=== PATIENT | female | born 2000 | race Caucasian/White ===

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

== ENCOUNTER 2022-03-06 12:28 | Emergency (ER) | payer SELFPAY ==
[2022-03-06 14:08] LABS: Urine Blood Negative (Negative); Urine Glucose Negative (Negative); Urine Protein 1+ (Negative); Urine Specific Gravity >=1.030 (1.005-1.030)
[2022-03-06 14:17] LABS: Absolute Lymphocytes (CBC) 0.5 K/uL (0.7-4.9); Hematocrit 47.1 % (36.0-45.0); Lymphocytes % 6.7 % (15.3-44.8); MCV 84.4 fL (80-100); MPV 8.3 fL (7.6-11.3); RBC Red Blood Cell Count 5.59 M/uL (3.86-4.86)
[2022-03-06 14:19] LABS: Urine Bacteria None Seen /HPF (<20); Urine Mucus 3+ /HPF (None Seen); Urine RBC <5 /HPF (None Seen)
[2022-03-06 14:23] LABS: Urine Specific Gravity/Preg >1.030 (1.005-1.030)
[2022-03-06] MEDS ORDERED: NA CHLORIDE 0.9% 1,000 ML ONE (14:29)
[2022-03-06] MEDS ORDERED: ONDANSETRON 4 MG/2 ML VIAL ONE (14:29)
[2022-03-06] MEDS ORDERED: KETOROLAC 30 MG/ML INJ ONE (14:29)
[2022-03-06 14:37] LABS: Albumin 3.8 g/dL (3.4-5.0); Bilirubin Total 0.5 mg/dL (0.2-1.0); Potassium 3.5 mmol/L (3.5-5.1); Protein, Total 7.1 g/dL (6.4-8.2)
[2022-03-06 14:52] LABS: SARS-COV-2 RT PCR NEGATIVE (NEGATIVE)
[2022-03-06 14:56] LABS: Blood Morphology Comment NOT SEEN (NOT SEEN); Platelet Estimate ADEQ; White Blood Cell Scan OK (OK)
--- NOTE | 2022-03-06 15:16 | ER ---
Nurse's Notes [facility] Name: Nicol Mulligan Age: 22 yrs Sex: Female : 2000 Arrival Date: 03/06/2022 Time: 12:30 Bed 12 Private MD: Diagnosis: Acute viral syndrome;Myalgia;Diarrhea Presentation: 03/06 13:16 Chief complaint: Patient states: Intermittent constipation and diarrhea, N/V, body ph aches, chills and fatigue. Coronavirus screen: Vaccine status: Patient reports receiving the 2nd dose of the covid vaccine. Ebola Screen: No symptoms or risks identified at this time. Initial Sepsis Screen: Does the patient meet any 2 criteria? No. Patient's initial sepsis screen is negative. Does the patient have a suspected source of infection? No. Patient's initial sepsis screen is negative. Risk Assessment: Do you want to hurt yourself or someone else? Patient reports no desire to harm self or others. Onset of symptoms was March 06, 2022. 13:16 Method Of Arrival: Ambulatory ph 13:16 Acuity: DIYA 3 ph Historical: - Allergies: 13:18 Amoxicillin; ph 13:18 PENICILLINS; ph - PMHx: 13:18 None; ph - Immunization history:: Adult Immunizations unknown. - Social history:: Smoking status: Patient denies any tobacco usage or history of. Screenin:38 [facility] ED Fall Risk Assessment (Adult) History of falling in the last 3 months, iw including since admission. [facility] ED Fall Risk Assessment (Adult) History of falling in the last 3 months, including since admission No falls in past 3 months (0 pts). Abuse screen: Denies threats or abuse. Denies injuries from another. Nutritional screening: No deficits noted. Tuberculosis screening: No symptoms or risk factors identified. Assessment: 14:38 General: Appears in no apparent distress. Behavior is calm, cooperative. Neuro: iw Trevizo Agitation-Sedation Scale (RASS): Level of Consciousness is awake, alert, obeys commands, Oriented to person, place, time, situation, Moves all extremities. Full function. Cardiovascular: Patient's skin is warm and dry. Respiratory: Respiratory effort is even, unlabored, Respiratory pattern is regular. GI: Abdomen is flat, non-distended. Derm: Skin is intact, is healthy with good turgor. Musculoskeletal: Range of motion: intact in all extremities. Vital Signs: 13:16 BP 98 / 68; Pulse 103; Resp 18; Temp 97.5; Pulse Ox 100% on R/A; Weight 63.5 kg; Height ph 5 ft. 4 in. (162.56 cm); 13:16 Body Mass Index 24.03 (63.50 kg, 162.56 cm) ph ED Course: 12:30 Patient arrived in ED. as 12:36 Rosario Alfaro MD is Attending Physician. sd2 13:17 Triage completed. ph 13:44 Johanny Damico, RN is Primary Nurse. iw 14:12 Urine Microscopic Only Sent. rs5 14:17 Lipase Sent. mm9 14:17 CMP Sent. mm9 14:17 CBC with Diff Sent. mm9 14:17 COVID-19/FLU A+B Sent. mm9 14:17 Urine --Ancillary (enter results) Sent. mm9 14:17 Urine Microscopic Only Sent. mm9 14:38 Patient has correct armband on for positive identification. iw 15:54 No provider procedures requiring assistance completed. IV discontinued, intact, iw bleeding controlled, No redness/swelling at site. Pressure dressing applied. Administered Medications: 14:36 Drug: NS 0.9% 1000 ml Route: IV; Rate: 1 bolus; Site: left antecubital; iw 14:37 Drug: Zofran (Ondansetron) 4 mg Route: IVP; Site: left antecubital; iw 14:37 Drug: Ketorolac 15 mg Route: IVP; Site: left antecubital; iw Outcome: 15:16 Discharge ordered by . sd2 15:55 Patient left the ED. iw Signatures: Li Contreras Irene, FANY RN iw Lacey Peña RN RN ph Rosario Alfaro MD MD sd2 Baetrice Contreras mm9 Max Yarbrough rs5
--- NOTE | 2022-03-06 15:16 | EDPHYS ---
Physician Documentation [facility] Name: Nicol Mulligan Age: 22 yrs Sex: Female : 2000 Arrival Date: 03/06/2022 Time: 12:30 Bed 12 Private MD: ED Physician Rosario Alfaro HPI: 03/06 13:44 This 22 yrs old Female presents to ER via Ambulatory with complaints of Nausea, sd2 Diarrhea, body aches, Abdominal Pain. 13:44 22 yo F presents with CC of nausea, diarrhea and body aches since last night. Reports sd2 ongoing diarrhea x1 week due to NuvaRing which caused her constipation in the past then followed by diarrhea once removed. Started with subjective fever, body aches, chills and night sweats last night along with body aches. Took Pepto-Bismol with no relief. . Historical: - Allergies: 13:18 Amoxicillin; ph 13:18 PENICILLINS; ph - PMHx: 13:18 None; ph - Immunization history:: Adult Immunizations unknown. - Social history:: Smoking status: Patient denies any tobacco usage or history of. ROS: 13:44 Eyes: Negative for injury, pain, redness, and discharge, Cardiovascular: Negative for sd2 chest pain, palpitations, and edema, Respiratory: Negative for shortness of breath, cough, wheezing. 13:44 : Negative for dysuria, urinary frequency, hesitancy, urgency and hematuria. MS/Extremity: Negative for injury and deformity, Skin: Negative for injury, rash, and discoloration, Neuro: Negative for headache, numbness and tingling. 13:44 Constitutional: Positive for body aches, chills, fever, Negative for 13:44 Abdomen/GI: Positive for nausea, diarrhea, Negative for vomiting. Exam: 13:44 Constitutional: This is a well developed, well nourished patient who is awake, alert, sd2 and in no acute distress. Head/Face: Normocephalic, atraumatic. Eyes: EOMI, normal conjunctiva bilaterally Chest/axilla: Normal chest wall appearance and motion. Nontender with no deformity. Cardiovascular: Regular rate and rhythm with a normal S1 and S2. No gallops, murmurs, or rubs. 2+ distal pulses. Respiratory: Lungs have equal breath sounds bilaterally, clear to auscultation and percussion. No rales, rhonchi or wheezes noted. No increased work of breathing, no retractions or nasal flaring. Abdomen/GI: Soft, with normal bowel sounds. No guarding or rebound. Mild generalized abdominal wall soreness. Skin: Warm, dry with normal turgor. Normal color with no rashes, no lesions, and no evidence of cellulitis. MS/ Extremity: Pulses equal, no cyanosis. Neurovascular intact. Full, normal range of motion. Ambulatory without difficulty. Psych: Awake, alert, with orientation to person, place and time. Behavior, mood, and affect are within normal limits. Vital Signs: 13:16 BP 98 / 68; Pulse 103; Resp 18; Temp 97.5; Pulse Ox 100% on R/A; Weight 63.5 kg; Height ph 5 ft. 4 in. (162.56 cm); 13:16 Body Mass Index 24.03 (63.50 kg, 162.56 cm) ph MDM: 13:23 Patient medically screened. sd2 15:13 Differential diagnosis: Gastritis, cholecystitis, pancreatitis, SBO, diverticulitis, sd2 kidney stone, appendicitis, UTI, dehydration, electrolyte abnormality among others. Data reviewed: vital signs, nurses notes, lab test result(s). Counseling: I had a detailed discussion with the patient and/or guardian regarding: the historical points, exam findings, and any diagnostic results supporting the discharge/admit diagnosis, lab results, the need for outpatient follow up, to return to the emergency department if symptoms worsen or persist or if there are any questions or concerns that arise at home. Medical screen evaluation completed. [facility] emergency medical condition absent. ED course: Labs reviewed. Labs grossly WNCL. Pt feeling improved after treatment. Tolerating PO. Benign abdominal exam. Advised of continued supportive care for symptoms. Verbalizes understanding of discharge plan and strict return precautions. . 03/06 13:43 Order name: CBC with Diff; Complete Time: 15:00 sd2 03/06 13:43 Order name: CMP; Complete Time: 15:00 sd2 03/06 13:43 Order name: Lipase; Complete Time: 15:00 sd2 03/06 13:43 Order name: Urine Microscopic Only; Complete Time: 14:28 sd2 03/06 13:43 Order name: COVID-19/FLU A+B; Complete Time: 15:00 sd2 03/06 14:08 Order name: Urine Dipstick-Ancillary; Complete Time: 14:28 EDMS 03/06 13:43 Order name: Urine Dipstick-Ancillary (obtain specimen); Complete Time: 14:12 sd2 03/06 13:43 Order name: Urine Test (obtain specimen); Complete Time: 14:12 sd2 03/06 14:16 Order name: Urine --Ancillary (enter results); Complete Time: 14:28 em1 03/06 14:23 Order name: CBC Smear Scan; Complete Time: 15:00 EDMS Administered Medications: 14:36 Drug: NS 0.9% 1000 ml Route: IV; Rate: 1 bolus; Site: left antecubital; iw 14:37 Drug: Zofran (Ondansetron) 4 mg Route: IVP; Site: left antecubital; iw 14:37 Drug: Ketorolac 15 mg Route: IVP; Site: left antecubital; iw Disposition Summary: 03/06/22 15:16 Discharge Ordered Location: Home sd2 Problem: new sd2 Symptoms: have improved sd2 Condition: Stable sd2 Diagnosis - Acute viral syndrome sd2 - Myalgia sd2 - Diarrhea sd2 Followup: sd2 - With: Private Physician - When: 2 - 3 days - Reason: Worsening of condition Discharge Instructions: - Discharge Summary Sheet sd2 - Viral Illness, Adult sd2 Forms: - Medication Reconciliation Form sd2 - Thank You Letter sd2 - Antibiotic Education sd2 - Prescription Opioid Use sd2 Prescriptions: - Zofran 4 mg Oral Tablet - take 1 tablet by ORAL route every 6 hours As needed; 15 tablet; Refills: 0, sd2 Product Selection Permitted Signatures: Dispatcher [employer] Johanny Mann RN RN Lacey Peña RN RN Rosario Alfaro MD MD sd2
[2022-03-06 16:00] VITALS: BP 98/68; TEMP 97.5; O2SAT 100
== END 2022-03-06 15:55 | disposition home or self-care (01) ==
LOC: ER 12:28
DX: B34.9 Viral infection, unspecified (principal); M79.10 Myalgia, unspecified site; Z20.822 Contact with and (suspected) exposure to COVID-19
CPT/HCPCS: 0240U; 36415; 80053; 81003; 81015; 81025; 83690; 85025; 96374; 96375; 99283; J2405; J7030